=== PATIENT | female | born 1995 | race Caucasian/White ===

== ENCOUNTER 2017-06-29 04:11 | Emergency (ER) | payer BC ==
[~2017-06-29] VITALS: Ht 170.2 cm; Wt 80.7 kg
[2017-06-29 04:17] VITALS: Ht 170.2 cm; Wt 80.7 kg
[2017-06-29 04:47] LABS: BASOPHIL % 0.7 % (0-2); PLATELET COUNT 258 x10^3mcL (130-400); RED CELL DISTRIBUTION WIDTH 14.3 % (11.5-14.5)
[2017-06-29 05:01] LABS: microscopic required? YES; urine erythrocyte NEGATIVE (NEGATIVE)
[2017-06-29 06:39] VITALS: BP 126/80
== END 2017-06-29 06:39 | disposition home or self-care (01) ==
LOC: ED 04:11
PROVIDERS: Specialist
DX: O23.41 Unspecified infection of urinary tract in pregnancy, first trimester (principal); Z3A.01 Less than 8 weeks gestation of pregnancy
CPT/HCPCS: 36415